=== PATIENT | male | born 1985 | race Caucasian/White ===

== ENCOUNTER 2019-01-30 18:11 | Emergency (ER) | payer OTHER ==
[2019-01-30 18:20] VITALS: BP 133/87
[2019-01-30] MEDS ORDERED: Tetan/Diph/Pertus SYR(Tdap)* 0.5 ML SYR(BOOSTRIX) use SYR IM ONE (18:24)
--- NOTE | 2019-01-30 18:39 | ED ---
Laceration/Wound HPI - HPI Summary HPI Summary: 33 yo male presents with laceration to right 5th digit. He tells me that he was at work and a glass broke and a piece sliced his right pinky finger. He bandaged the area and came to the ED. He is right handed. He is unsure the date of his last tetanus shot. - History of Current Complaint Stated Complaint: RT PINKY LAC PER PT Time Seen by Provider: 01/30/19 18:24 Hx Obtained From: Patient Onset/Duration: Sudden Onset Onset Severity: Moderate Current Severity: Moderate Pain Intensity: 6 Pain Scale Used: 0-10 Numeric - Additional Pertinent History Primary Care Physician: LES - Allergy/Home Medications Allergies/Adverse Reactions: Allergies Allergy/AdvReac Type Severity Reaction Status Date / Time No Known Allergies Allergy Verified 01/30/19 18:20 PMH/Surg Hx/FS Hx/Imm Hx Endocrine/Hematology History: Denies: Hx Diabetes Cardiovascular History: Denies: Hx Hypertension Respiratory History: Denies: Hx Asthma, Hx Chronic Obstructive Pulmonary Disease (COPD) Sensory History: Denies: Hx Contacts or Glasses, Hx Hearing Aid Opthamlomology History: Denies: Hx Contacts or Glasses Neurological History: Denies: Hx Migraine Psychiatric History: Reports: Hx Anxiety, Hx Depression, Hx Inpatient Treatment , Hx Bipolar Disorder - Surgical History Surgical History: None Surgery Procedure, Year, and Place: Appendectomy. Tonsillectomy Infectious Disease History: No Infectious Disease History: Denies: Traveled Outside the [place] in Last 30 Days - Family History Known Family History: Positive: Non-Contributory Family History: mother with dementia - Social History Occupation: Employed Full-time Lives: With Family Alcohol Use: Occasionally Alcohol Amount: 6-8 drinks daily Substance Use Type: Reports: None Smoking Status (MU): Heavy Every Day Tobacco Smoker Type: Cigarettes Review of Systems Constitutional: Negative Cardiovascular: Negative Respiratory: Negative Gastrointestinal: Negative Musculoskeletal: Negative Skin: Other - Right pinky laceration Neurological: Negative Psychological: Normal All Other Systems Reviewed And Are Negative: No Physical Exam - Summary Physical Exam Summary: GENERAL: NAD. WDWN. No pain distress. SKIN: Right 5th digit: ulnar aspect with V shaped laceration 1.5cm in length. No tendon involvement or FB appreciated NECK: Supple. Nontender. No lymphadenopathy. CHEST: No accessory muscle use. Breathing comfortably and in no distress. CV: Pulses intact. Cap refill <2seconds MSK: FROM and 5/5 strength right 5th digit MCP, PIP, and DIP NEURO: Alert. PSYCH: Age appropriate behavior. Triage Information Reviewed: Yes Vital Signs On Initial Exam: Initial Vitals Temp Pulse Resp BP Pulse Ox 99.0 F 84 16 133/87 97 01/30/19 18:16 01/30/19 18:16 01/30/19 18:16 01/30/19 18:16 01/30/19 18:16 Vital Signs Reviewed: Yes Procedures - Laceration/Wound Repair 1 Location: upper extremity Description: Linear Anesthesia: 1.0% Length, Depth and Shape: 1.5cm length V shaped Irrigated w/ Saline (ccs): 100 Laceration/Wound Explored: clean Closure: Single Layer Suture Type: Prolene - 5-0 Number of Sutures: 5 Layer Closure?: No Sterile Dressing Applied?: Yes Diagnostics - Vital Signs Vital Signs Temp Pulse Resp BP Pulse Ox 01/30/19 18:16 99.0 F 84 16 133/87 97 - Laboratory Lab Statement: Any lab studies that have been ordered have been reviewed, and results considered in the medical decision making process. Laceration Repair Course/Dx - Course Course Of Treatment: The procedure was explained to the pt and all questions were answered. A time out was performed, witnessed, and signed. The area was irrigated with 100mL sterile saline. 2mL of 2% lidocaine without epi was administered and good anesthetization was achieved. In the usual sterile fashion , FIVE 5-0 prolene interrupted sutures were placed. Homeostasis achieved. The wound was bandaged with tubgauze. Pt tolerated procedure well. tdap updated today. He was provided a finger splint to use when he removes the dressing tomorrow to keep the digit extended to allow lac to heal. - Clinical Impression Provider Diagnoses: Laceration of finger Discharge ED - Sign-Out/Discharge Documenting (check all that apply): Patient Departure Patient Received Moderate/Deep Sedation with Procedure: No - Discharge Plan Condition: Stable Disposition: HOME Patient Education Materials: Care For Your Stitches (ED), Laceration (ED) Forms: *Work Release Referrals: Aram Menon DO [Primary Care Provider] - Additional Instructions: 1) Please keep the area bandage, clean, dry, and intact for the next 24- 48hours. Then change the bandage daily until sutures are removed. Use the finger splint for 5 days as much as possible 2) If you develop a fever, colored or thick discharge, increased pain or swelling - please call your PCP or return for a wound check. 3) Please return in 10-14 days to have your FIVE sutures removed. - Billing Disposition and Condition Condition: STABLE Disposition: Home
[2019-01-30] MEDS ORDERED: Lidocaine 1% MDV 20 ML INJ ONE ×2 (19:02→19:05)
[2019-01-30] MEDS ORDERED: Bacitracin OINTMENT* 0.5% 0.5 oz TUBE TOPICAL ONE (19:32)
[2019-01-30] MEDS ORDERED: Lidocaine 1% INJ* 10 MG/ML 30 ML SDV INJ ONE (20:00)
== END 2019-01-30 20:05 | disposition home or self-care (01) ==
LOC: ED 18:11
DX: S61.216A Laceration without foreign body of right little finger without damage to nail, initial encounter (principal); W25.XXXA Contact with sharp glass, initial encounter; Y92.9 Unspecified place or not applicable; Y99.0 Civilian activity done for income or pay; Z23 Encounter for immunization; F17.210 Nicotine dependence, cigarettes, uncomplicated
CPT/HCPCS: 12001; 90471; 90715; 99282; A9270-GY

== ENCOUNTER 2019-05-26 12:18 | Emergency (ER) | payer OTHER ==
--- OUTSIDE RECORDS SUMMARY | 2019-05-26 12:26 | XMS REPORT ---
:1985 Author Organization [facility] Care Team Providers Name Role Phone Brit Cruz Primary Care Physician Unavailable Allergies, Adverse Reactions, Alerts Allergy Code CodeSystem Reaction Severity Criticality Status Start Substance Date Moderate Medications Medication Medication Medication Start Stop Route Dose Status Fill Code CodeSystem Date Date Instructions lamotrigine 19830625 RxNorm 2018- oral 100 mg 1 completed Take 1 tablet 10-13 tablet once a day once a for 30 day(s) day lamotrigine 19830627 RxNorm 2019- oral 200 mg completed for 30 11-10 08-12 tablet day(s) quetiapine 363563 RxNorm 2018- oral 50 mg 1 active 1 tablet at 09-17-04 tablet at bedtime for bedtime 30 day(s) lamotrigine 475458 RxNorm 2018- oral 25 mg 3 completed Take 3 tablet 09-17 tablet by mouth once once a a day for 30 day day(s) lamotrigine 19830626 RxNorm 2019- oral 150 mg completed for 14 11-10 08-12 tablet day(s) lithium 19780117 RxNorm 2018- oral 300 mg completed for 30 carbonate 09-17 tablet day(s) extended release levothyroxine 928184 RxNorm oral 25 mcg 1 active Take 1 tablet 8-06 tablet once a day once a for 30 day(s) day lamotrigine 19830627 RxNorm oral 200 mg 1 active Take 1 tablet 8-12 tablet once a day once a for 30 day(s) day fluoxetine 160345 RxNorm 2019- oral 20 mg completed for 30 09-17- capsule day(s) lithium 19780117 RxNorm 2019- oral 300 mg 4 active Take 4 tablet carbonate 10-13 12-04 tablet at bedtime extended for 30 day(s) release at bedtime Problems Problem Name Code CodeSystem Alternate Alternate Start End Status Narrative Code CodeSystem Date Date Bipolar 59522406 SNOMED-CT 2019- Active affective 3-22 disorder, unspecified Relevant diagnostic tests/laboratory data Narrative No Information Procedures Procedure Code CodeSystem Target Date of Status Service Device Device Device Name Site Procedure Delivery Code Name UID Location Psychotherap [id number] SNOMED-CT () 2018-12-10 complete Mental y, 45 04 d Health- minutes with [place] patient [address], [id number] [phone] Psychotherap [id number] SNOMED-CT () 2018-12-24 complete Mental y, 45 04 d Health- minutes with [place] patient [address], [id number] [phone] Psychotherap [id number] SNOMED-CT () 2019-02-25 complete Mental y, 45 04 d Health- minutes with [place] patient [address], [id number] [phone] Psychotherap [id number] SNOMED-CT () 2019-02-04 complete Mental y, 45 04 d Health- minutes with Michelle patient [address], [id number] [phone] Psychotherap [id number] SNOMED-CT () 2019-03-11 complete Mental y, 45 04 d Health- minutes with Michelle patient [address], [id number] [phone] Office or [id number] SNOMED-CT () 2019-03-08 complete Mental other 7 d Health- outpatient Michelle visit for [address], established [id number] patient, [phone] which requires at least 2 of these 3 rodriguez components: An expanded problem focused history; An expanded problem focused examination; Medical decision making of low Office or [id number] SNOMED-CT () 2018-12-22 complete Mental other 7 d Health- outpatient Michelle visit for [address], established [id number] patient, [phone] which requires at least 2 of these 3 rodriguez components: An expanded problem focused history; An expanded problem focused examination; Medical decision making of low Office or [id number] SNOMED-CT () 2018-10-13 complete Mental other 7 d Health- outpatient Michelle visit for [address], [facility], established [id number] patient, [phone] which requires at least 2 of these 3 rodriguez components: An expanded problem focused history; An expanded problem focused examination; Medical decision making of [facility] Office or [id number] SNOMED-CT () 2018-11-10 complete Mental other 7 d Health- outpatient Michelle visit for [address], established [id number] patient, [phone] which requires at least 2 of these 3 rodriguez components: An expanded problem focused history; An expanded problem focused examination; Medical decision making of low SNOMED-CT () 2018-09-17 complete Mental d Health- Michelle [address], [id number] [phone] Encounters/Encounter Diagnoses Encounter Name Encounter Diagnosis Diagnosis Diagnosis Date of Service Code Code Name CodeSystem Diagnosis Delivery Location - 01029 [id number] Bipolar SNOMED-CT 2019-04-05 Behavioral Established affective Health patient 10 disorder, Clinic , , Minutes unspecified , Vital Signs No Information Social History Element Description Description Start End Code CodeSystem AdditionalInfo Date Date SexAssignedAtBirth Male 1984- M AdministrativeGender 06-02 Hospital Discharge Instructions Reason For Referral Medical Equipment FDA Assessments
--- OUTSIDE RECORDS SUMMARY | 2019-05-26 12:26 | XMS REPORT ---
:1985 Author Organization [facility] Care Team Providers Name Role Phone Brit Cruz Primary Care Physician Unavailable Allergies, Adverse Reactions, Alerts Allergy Code CodeSystem Reaction Severity Criticality Status Start Substance Date Moderate Medications Medication Medication Medication Start Stop Route Dose Status Fill Code CodeSystem Date Date Instructions quetiapine 925624 RxNorm 2019- oral 50 mg 1 active 1 tablet at 09-17 tablet at bedtime for bedtime 30 day(s) fluoxetine 917684 RxNorm 2018- oral 20 mg completed for 30 09-17 06-01 capsule day(s) lamotrigine 19830626 RxNorm 2018- oral 150 mg completed for 14 11-10 08-12 tablet day(s) lamotrigine 19830627 RxNorm oral 200 mg 1 active Take 1 tablet 8-12 tablet once a day once a for 30 day(s) day lithium 19780117 RxNorm 2018- oral 300 mg completed for 30 carbonate 09-17- tablet day(s) extended release levothyroxine 626206 RxNorm oral 25 mcg 1 active Take 1 tablet 8-06 tablet once a day once a for 30 day(s) day lamotrigine 19830627 RxNorm 2019- oral 200 mg completed for 30 11-10 08-12 tablet day(s) lamotrigine 19830625 RxNorm 2019- oral 100 mg 1 completed Take 1 tablet 10-13-25 tablet once a day once a for 30 day(s) day lithium 19780117 RxNorm 2019- oral 300 mg 4 active Take 4 tablet carbonate 10-13 12-04 tablet at bedtime extended for 30 day(s) release at bedtime lamotrigine 006531 RxNorm 2019- oral 25 mg 3 completed Take 3 tablet 09-17- tablet by mouth once once a a day for 30 day day(s) Problems Problem Name Code CodeSystem Alternate Alternate Start End Status Narrative Code CodeSystem Date Date Bipolar [id number] SNOMED-CT 2018- Active affective 3-22 disorder, unspecified Relevant diagnostic tests/laboratory data Narrative No Information Procedures Procedure Code CodeSystem Target Date of Status Service Device Device Device Name Site Procedure Delivery Code Name UID Location Psychotherap [id number] SNOMED-CT () 2018-12-10 complete Mental y, 45 04 d Health- minutes with [place] patient [address], [id number] [phone] Psychotherap [id number] SNOMED-CT () 2018-12-24 complete Mental y, 45 04 d Health- minutes with [place] patient [address], [id number] [phone] Psychotherap [id number] SNOMED-CT () 2019-02-25 complete Mental y, 45 04 d Health- minutes with [place] patient [address], [id number] [phone] Psychotherap [id number] SNOMED-CT () 2019-02-04 complete Mental y, 45 04 d Health- minutes with Michelle patient [address], [id number] [phone] Psychotherap [id number] SNOMED-CT () 2019-03-11 complete Mental y, 45 04 d Health- minutes with Michelle patient [address], [phone] Psychotherap [id number] SNOMED-CT () 2019-04-26 complete Mental y, 45 04 d Health- minutes with [place] patient [address], [id number] [phone] Office or [id number] SNOMED-CT () 2019-03-08 complete Mental other 7 d Health- outpatient [place] visit for [address], [place], established [id number] patient, [phone] which requires at least 2 of these 3 rodriguez components: An expanded problem focused history; An expanded problem focused examination; Medical decision making of [facility] Office or [id number] SNOMED-CT () 2018-12-22 complete Mental other 7 d Health- outpatient Michelle visit for [address], of an [place], established [id number] patient, [phone] which requires at least 2 of these 3 rodriguez components: An expanded problem focused history; An expanded problem focused examination; Medical decision making of low Office or [id number] SNOMED-CT () 2018-10-13 complete Mental other 7 d Health- outpatient Michelle visit for [address], established [phone] patient, [phone] which requires at least 2 of these 3 rodriguez components: An expanded problem focused history; An expanded problem focused examination; Medical decision making of low Office or [id number] SNOMED-CT () 2018-11-10 complete Mental other 7 d Health- outpatient [place] visit for [address], established [id number] patient, [phone] which requires at least 2 of these 3 rodriguez components: An expanded problem focused history; An expanded problem focused examination; Medical decision making of low Office or [id number] SNOMED-CT () 2019-04-05 complete Mental other 6 d Health- outpatient Michelle visit for [address], established [id number] patient, [phone] which requires at least 2 of these 3 rodriguez components: A problem focused history; A problem focused examination; [facility] medical decision making. [place] Office or [id number] SNOMED-CT () 2019-05-03 complete Mental other 6 d Health- outpatient [place] visit for [address], established [phone] patient, [phone] which requires at least 2 of these 3 rodriguez components: A problem focused history; A problem focused examination; [facility] [facility] medical decision making. Counselin SNOMED-CT () 2018-09-17 complete Mental d Health- Michelle [address], [id number] [phone] Encounters/Encounter Diagnoses Encounter Name Encounter Diagnosis Diagnosis Diagnosis Date of Service Code Code Name CodeSystem Diagnosis Delivery Location - 07540 [id number] Bipolar SNOMED-CT 2019-05-03 Behavioral Established affective Health patient 10 disorder, Clinic 201 Minutes unspecified [place], [place], [id number] Vital Signs No Information Social History Element Description Description Start End Code CodeSystem AdditionalInfo Date Date SexAssignedAtBirth Male 1984-05 M AdministrativeGender 06-02 Hospital Discharge Instructions Reason For Referral Medical Equipment FDA Assessments
[2019-05-26 13:18] VITALS: BP 112/82
--- NOTE | 2019-05-26 13:38 | UC ---
Skin Complaint HPI - HPI Summary HPI Summary: 34 yo with 3 day history of pain in the tail bone area, with drainage x 1 day and persistent pain. No fever, no abdominal pain, and passing normal stools. Past tail bone injury, but no hx of pilonidal cyst or abscess. - History of Current Complaint Chief Complaint: UCSkin Time Seen by Provider: 05/26/19 13:21 Stated Complaint: LUMP ON TAILBONE Hx Obtained From: Patient Onset/Duration: Gradual Onset, Lasting Days - 3 Timing: Constant Onset Severity: Moderate Current Severity: Moderate Pain Intensity: 8 Location: Discrete Character: Swelling, Pain, Raised Aggravating Factor(s): Clothing Alleviating Factor(s): Other - using ibuprofen 800mg 3 times daily and continues to have disrupted sleep due to pain. Associated Signs & Symptoms: Positive: Negative - Allergy/Home Medications Allergies/Adverse Reactions: Allergies Allergy/AdvReac Type Severity Reaction Status Date / Time No Known Allergies Allergy Verified 01/30/19 18:20 Home Medications: Home Medications [place] Carbonate TAB* 1 tab PO DAILY 05/26/19 [History Confirmed 05/26/19] Lurasidone(*) [Latuda] 1 tab PO DAILY 05/26/19 [History Confirmed 05/26/19] PMH/Surg Hx/FS Hx/Imm Hx Previously Healthy: Yes Psychological History: Bipolar Disorder - well controlled with meds - Surgical History Surgical History: None Surgery Procedure, Year, and Place: Appendectomy. Tonsillectomy - Family History Known Family History: Positive: Non-Contributory Family History: mother with dementia - Social History Alcohol Use: Daily Alcohol Amount: 6-8 drinks daily Substance Use Type: None Smoking Status (MU): Light Every Day Tobacco Smoker Type: Cigarettes - Immunization History Most Recent Influenza Vaccination: n/a Most Recent Pneumonia Vaccination: n/a Review of Systems All Other Systems Reviewed And Are Negative: Yes Constitutional: Positive: Negative Skin: Positive: Negative Eyes: Positive: Negative ENT: Positive: Negative Respiratory: Positive: Negative Cardiovascular: Positive: Negative Gastrointestinal: Positive: Negative Genitourinary: Positive: Negative Motor: Positive: Negative Neurovascular: Positive: Negative Musculoskeletal: Positive: Negative Neurological: Positive: Negative Psychological: Positive: Other - mood stable with medications Is Patient Immunocompromised?: No Physical Exam Triage Information Reviewed: Yes Appearance: Well-Appearing, Well-Nourished, Pain Distress - moderate Vital Signs: Initial Vital Signs Temp 98.2 F 05/26/19 13:13 Pulse 80 05/26/19 13:13 Resp 18 05/26/19 13:13 BP 112/82 05/26/19 13:13 Pulse Ox 100 05/26/19 13:13 Eye Exam: Normal ENT Exam: Normal Respiratory: Positive: Lungs clear, Normal breath sounds Cardiovascular: Positive: RRR, No Murmur Abdominal Exam: Normal Musculoskeletal Exam: Normal Neurological Exam: Normal Psychological Exam: Normal Skin Exam: Other - erythema and firm induration in the buttock cleft extending to the right buttock over 5 x 2 cm area. Scant serosanguinous discharge. No fluctuance. Course/Dx - Course Course Of Treatment: Begin antibiotics, add tramadol for control of pain, surgical referral. discussed pain control: he is inadequately controlled with maximum nsaid. Will add tramadol --[facility] review [id number]--[id number] controlled rx's on record. - Differential Diagnoses - Skin Complaint Differential Diagnoses: Abscess, Other - pilonidal cyst - Diagnoses Provider Diagnosis: Infected pilonidal cyst Discharge ED - Sign-Out/Discharge Documenting (check all that apply): Patient Departure All imaging exams completed and their final reports reviewed: No Studies - Discharge Plan Condition: Stable Disposition: HOME Prescriptions: Cephalexin CAP* [Keflex 500 CAP*] 500 mg PO TID #21 cap Tramadol HCl 50 mg PO Q8H PRN #10 tablet MDD 3 PRN Reason: Pain - Severe Patient Education Materials: Pilonidal Cyst (ED) Referrals: Aram Menon DO [Primary Care Provider] - Pankaj Fuller MD [Medical Doctor] - Additional Instructions: Please call Dr. Fuller's office today to arrange an evaluation of your pilondail cyst in 2 to 4 days. At this time, there is not a formed abscess to drain. Begin use of cephalexin as an antibiotics. Continue ibuprofen regularly, and you can add tramadlol 50mg every 8 hours for relief of pain. Apply warm moist compresses to the area to promote drainage. - Billing Disposition and Condition Condition: STABLE Disposition: Home
== END 2019-05-26 14:21 | disposition home or self-care (01) ==
LOC: UCEAST 12:18
DX: L05.91 Pilonidal cyst without abscess (principal); F17.210 Nicotine dependence, cigarettes, uncomplicated; F31.9 Bipolar disorder, unspecified
CPT/HCPCS: 99212; G0463